=== PATIENT | female | born 2000 | race Caucasian/White ===

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

== ENCOUNTER 2019-06-07 00:22 | Inpatient (IN) | payer BC ==
[~2019-06-07 00:22] MED LIST changes: +Bupivacaine 0.25% 10 ML SDV ONE; -Lactated Ringers 1,000 ML IV SCH; -Lidocaine 1%/Sod Bicarbonate in NS 8.4% 1 ML Syringe IDERM PRN; -Sodium Chloride 0.9% 10 ML Syringe FLUSH PRN
[2019-06-07] MEDS ORDERED: Ondansetron 4 MG/2 ML SDV IVPUSH PRN ×2 (01:33→07:46)
[2019-06-07] MEDS ORDERED: Nalbuphine 10 MG/ML Syringe IVPUSH PRN (01:33)
[2019-06-07] MEDS ORDERED: Sodium Chloride 0.9% 10 ML Syringe FLUSH PRN (01:33)
[2019-06-07] MEDS ORDERED: Oxytocin/Lactated Ringers 10 UNIT/1,000 ML BAG IV SCH ×2 (01:45→11:00)
--- NOTE | 2019-06-07 01:47 | PCM.HP.2 ---
<Erick Jensen - Last Filed: 06/07/19 02:14> H&P History of Present Illness - General Date of Service: 06/07/19 Admit Problem/Dx: Admission Diagnosis/Problem Admission Diagnosis/Problem Source of Information: Patient History Limitations: Reports: No Limitations - History of Present Illness Initial Comments - Free Text/Narative: Ms. Faith Waller is a pleasant 18 yo F who is a with an ANT 2019 and estimated gestational age of 39 weeks and 4 days. Ms. Waller presents to L&D this morning around . She started having low back pain since 444 on 06/06/2019 and things have continued since then. She states she is having contraction like pain and these have progressively gotten more frequent and more strong. Because of this as well as the pain being in front from her contractions she decided to come in. She states the pain right now is between a 5-6/10. She states she was having contractions all day between 5-9 min apart but in the last 3 hours seem to be every 3-5 min. She admits the tub at home helped with her pain. Pt admits to transient nausea but denies vomiting. Pt normally sees Dr. Truong for care, pt denies any concerns regarding this from her or Dr. Truong. Last time she saw him was Friday, 2019. Pt reports being GBS (-), having no history of HTN or asthma. Pt not interested in an epidural at this point. Pt presents ~0030 on 06/07/2019 for an OB check. Hx of Labs: RPR: negative HIV: negative GBS: negative WBC: 8.0 RBC: 4.45 Hgb: 12.4 Hct: 38.3 Fe: 32 ug/dL TIBC: 413 ug/dL % saturation: 8% - Related Data Allergies/Adverse Reactions: Allergies Allergy/AdvReac Type Severity Reaction Status Date / Time No Known Allergies Allergy Verified 06/07/19 00:37 Home Medications: Home Meds Ferrous Sulfate [Iron] 325 mg PO 06/07/19 [History] Past Medical History HEENT History: Reports: Other (See Below) Other HEENT History: has contacts Cardiovascular History: Reports: None Respiratory History: Reports: None Gastrointestinal History: Reports: None Genitourinary History: Reports: None 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: Reports: Musculoskeletal History: Reports: None Neurological History: Reports: Other (See Below) (Chiari I malformation) Other Neuro History: chiari decompression 2015, 2018 Psychiatric History: Reports: None Endocrine/Metabolic History: Reports: None Hematologic History: Reports: None Immunologic History: Reports: None Oncologic (Cancer) History: Reports: None Dermatologic History: Reports: None - Past Surgical History Head Surgeries/Procedures: Reports: Other (See Below) (Chiari decompression x 2) HEENT Surgical History: Reports: Oral Surgery (wisdom teeth extraction) Social & Family History - Caffeine Use Caffeine Use: Reports: None - Living Situation & Occupation Living situation: Reports: , with Spouse Occupation: Unemployed H&P Review of Systems - Review of Systems: General: Reports: No Symptoms HEENT: Reports: No Symptoms, Glasses Pulmonary: Reports: No Symptoms Cardiovascular: Reports: No Symptoms Gastrointestinal: Reports: No Symptoms Genitourinary: Reports: No Symptoms Musculoskeletal: Reports: No Symptoms Skin: Reports: No Symptoms Psychiatric: Reports: No Symptoms Neurological: Reports: No Symptoms Hematologic/Lymphatic: Reports: No Symptoms Exam - Exam Exam: See Below - Vital Signs Vital Signs: Last Vital Signs Temp 97.9 F 06/07/19 00:37 Pulse 79 06/07/19 00:37 Resp 15 06/07/19 00:37 BP 111/73 06/07/19 00:37 Pulse Ox 96 06/07/19 00:37 Weight: 143 lb 4.8 oz - Exam General: Alert, Oriented HEENT: Conjunctiva Clear, Hearing Intact, Pupils Equal, Pupils Reactive Neck: Supple, Trachea Midline Lungs: Clear to Auscultation, Normal Respiratory Effort Cardiovascular: Regular Rate, Regular Rhythm, Normal S1, Normal S2 (Female) Exam: Other (Per exam via Dr. Lynn she is 90-100% effaced, 2cm dilated, soft, posterior, vertex and -1 station) Extremities: Normal Inspection, No Pedal Edema Peripheral Pulses: 2+: Radial (L), Radial (R), Posterior Tibial (L), Posterior Tibial (R) Skin: Warm, Dry, Intact Neuro Extensive - Mental Status: Alert, Oriented x3, Normal Mood/Affect, Normal Cognition Psychiatric: Alert, Normal Affect, Normal Mood - Patient Data Result Diagrams: 06/07/19 01:50 Sepsis Event Note - Focused Exam Vital Signs: Vital Signs Temp Pulse Resp BP Pulse Ox 06/07/19 00:37 97.9 F 79 15 111/73 96 Date Exam was Performed: 06/07/19 Time Exam was Performed: 02:14 Problem List Initiated/Reviewed/Updated: Yes Orders Last 24hrs: Active Orders 24 hr Category Date Time Status Patient Status [ADT] Routine ADT 06/07/19 01:34 Active Activity as Tolerated [RC] PFP Care 06/07/19 01:33 Active Communication Order [RC] ASDIRECTED Care 06/07/19 01:33 Active Heart Tones [RC] ASDIRECTED Care 06/07/19 01:34 Active Non Stress Test [RC] PER UNIT ROUTINE Care 06/07/19 00:37 Active Notify Provider [RC] PFP Care 06/07/19 01:33 Active Notify Provider [RC] PRN Care 06/07/19 01:33 Active Peripheral IV Care [RC] . DIRECTED Care 06/07/19 01:34 Active Vital Signs [RC] PER UNIT ROUTINE Care 06/07/19 00:37 Active Regular Diet [DIET] Diet 06/07/19 Breakfast Active BLOOD BANK HOLD SPECIMEN [BBK] Routine Lab 06/07/19 01:33 Ordered CBC WITH AUTO DIFF [HEME] Routine Lab 06/07/19 01:33 Ordered RAPID PLASMA REAGIN,RPR [CHEM] Routine Lab 06/07/19 01:33 Ordered Lactated Ringers [Ringers, Lactated] 1,000 ml Med 06/07/19 01:45 Active IV ASDIRECTED Nalbuphine [Nubain] Med 06/07/19 01:33 Active 10 mg IVPUSH Q2H PRN Ondansetron [Zofran] Med 06/07/19 01:33 Active 4 mg IVPUSH Q4H PRN Oxytocin/Lactated Ringers [Pitocin in LR 10 Units/1,000 Med 06/07/19 01:45 Active ML] 10 unit in 1,000 ml IV .CONTINUOUS Sodium Chloride 0.9% [Saline Flush] Med 06/07/19 01:33 Active 10 ml FLUSH ASDIRECTED PRN Electronic Heart Tones Ext w TOCO [WOMSER] Oth 06/07/19 01:33 Ordered Routine Electronic Heart Tones Internal [WOMSER] Per Unit Oth 06/07/19 01:33 Ordered Routine Peripheral IV Insertion Adult [OM.PC] Routine Oth 06/07/19 01:33 Ordered Resuscitation Status Routine Resus Stat 06/07/19 00:37 Ordered Medication Orders Lactated Ringer's (Ringers, Lactated) 1,000 mls @ 100 mls/hr IV ASDIRECTED BRANDON Oxytocin/Lactated Ringer's (Pitocin In Lr 10 Units/1,000 Ml) 10 unit in 1,000 mls @ 500 mls/hr IV .CONTINUOUS BRANDON Nalbuphine HCl (Nubain) 10 mg IVPUSH Q2H PRN PRN Reason: Pain Ondansetron HCl (Zofran) 4 mg IVPUSH Q4H PRN PRN Reason: Nausea/Vomiting Sodium Chloride (Saline Flush) 10 ml FLUSH ASDIRECTED PRN PRN Reason: Keep Vein Open Assessment/Plan Comment:: labs to be drawn monitor for labor and delivery - Mortality Measure Prognosis:: Good <Bethel Lynn - Last Filed: 06/07/19 02:25> H&P History of Present Illness - General Admit Problem/Dx: Admission Diagnosis/Problem Admission Diagnosis/Problem H&P Review of Systems - Review of Systems: Review Of Systems: See Below Exam - Vital Signs Vital Signs: Last Vital Signs Temp 97.9 F 06/07/19 00:37 Pulse 79 06/07/19 00:37 Resp 15 06/07/19 00:37 BP 111/73 06/07/19 00:37 Pulse Ox 96 06/07/19 00:37 - Patient Data Lab Results Last 24 hrs: Laboratory Results - last 24 hr 06/07/19 Range/Units 01:50 WBC 12.22 H (3.98-10.04) K/mm3 RBC 4.68 (3.98-5.22) M/mm3 Hgb 13.0 (11.2-15.7) gm/dl Hct 39.2 (34.1-44.9) % MCV 83.8 (79.4-94.8) fl MCH 27.8 (25.6-32.2) pg MCHC 33.2 (32.2-35.5) g/dl RDW Std Deviation 43.3 (36.4-46.3) fL Plt Count 311 (182-369) K/mm3 MPV 10.6 (9.4-12.3) fl Neut % (Auto) 80.1 H (34.0-71.1) % Lymph % (Auto) 11.8 L (19.3-51.7) % [place] % (Auto) 7.2 (4.7-12.5) % Eos % (Auto) 0 L (0.7-5.8) Baso % (Auto) 0.2 (0.1-1.2) % Neut # (Auto) 9.79 H (1.56-6.13) K/mm3 Lymph # (Auto) 1.44 (1.18-3.74) K/mm3 [place] # (Auto) 0.88 H (0.24-0.36) K/mm3 Eos # (Auto) 0.00 L (0.04-0.36) K/mm3 Baso # (Auto) 0.02 (0.01-0.08) K/mm3 Result Diagrams: 06/07/19 01:50 Sepsis Event Note - Focused Exam Vital Signs: Vital Signs Temp Pulse Resp BP Pulse Ox 06/07/19 00:37 97.9 F 79 15 111/73 96 Date Exam was Performed: 06/07/19 Time Exam was Performed: 02:24 - Problem List (1) 39 weeks gestation of SNOMED Code(s): 86431174 ICD Code: Z3A.39 - 39 WEEKS GESTATION OF Status: Acute Current Visit: Yes Problem List Initiated/Reviewed/Updated: No Orders Last 24hrs: Active Orders 24 hr Category Date Time Status Patient Status [ADT] Routine ADT 06/07/19 01:34 Active Activity as Tolerated [RC] PFP Care 06/07/19 01:33 Active Communication Order [RC] ASDIRECTED Care 06/07/19 01:33 Active Heart Tones [RC] ASDIRECTED Care 06/07/19 01:34 Active Non Stress Test [RC] PER UNIT ROUTINE Care 06/07/19 00:37 Active Notify Provider [RC] PFP Care 06/07/19 01:33 Active Notify Provider [RC] PRN Care 06/07/19 01:33 Active Peripheral IV Care [RC] . DIRECTED Care 06/07/19 01:34 Active Vital Signs [RC] PER UNIT ROUTINE Care 06/07/19 00:37 Active Regular Diet [DIET] Diet 06/07/19 Breakfast Active BLOOD BANK HOLD SPECIMEN [BBK] Routine Lab 06/07/19 01:33 Ordered RAPID PLASMA REAGIN,RPR [CHEM] Routine Lab 06/07/19 01:50 Received Lactated Ringers [Ringers, Lactated] 1,000 ml Med 06/07/19 01:45 Active IV ASDIRECTED Nalbuphine [Nubain] Med 06/07/19 01:33 Active 10 mg IVPUSH Q2H PRN Ondansetron [Zofran] Med 06/07/19 01:33 Active 4 mg IVPUSH Q4H PRN Oxytocin/Lactated Ringers [Pitocin in LR 10 Units/1,000 Med 06/07/19 01:45 Active ML] 10 unit in 1,000 ml IV .CONTINUOUS Sodium Chloride 0.9% [Saline Flush] Med 06/07/19 01:33 Active 10 ml FLUSH ASDIRECTED PRN Electronic Heart Tones Ext w TOCO [WOMSER] Oth 06/07/19 01:33 Ordered Routine Electronic Heart Tones Internal [WOMSER] Per Unit Oth 06/07/19 01:33 Ordered Routine Peripheral IV Insertion Adult [OM.PC] Routine Oth 06/07/19 01:33 Ordered Resuscitation Status Routine Resus Stat 06/07/19 00:37 Ordered Medication Orders Lactated Ringer's (Ringers, Lactated) 1,000 mls @ 100 mls/hr IV ASDIRECTED BRANDON Oxytocin/Lactated Ringer's (Pitocin In Lr 10 Units/1,000 Ml) 10 unit in 1,000 mls @ 500 mls/hr IV .CONTINUOUS BRANDON Nalbuphine HCl (Nubain) 10 mg IVPUSH Q2H PRN PRN Reason: Pain Ondansetron HCl (Zofran) 4 mg IVPUSH Q4H PRN PRN Reason: Nausea/Vomiting Sodium Chloride (Saline Flush) 10 ml FLUSH ASDIRECTED PRN PRN Reason: Keep Vein Open Assessment/Plan Comment:: Patient was seen and examined by me and discussed with the student.
[2019-06-07] MEDS ORDERED: fentaNYL 100 MCG/2 ML SDV EPIDUR PRN (07:46)
[2019-06-07] MEDS ORDERED: fentaNYL/Bupivacaine/NS 2 MCG-0.125% 250 ML EPIDUR PRN (07:46)
[2019-06-07] MEDS ORDERED: ePHEDrine 50 MG/ML SDV IVPUSH PRN (07:46)
--- NOTE | 2019-06-07 07:48 | PCM.PREANE ---
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 Since procedure patient denies any issues with headaches.) - Physical Assessment NPO Status Date: 06/07/19 NPO Status Time: 07:00 Vital Signs: Last Vital Signs Temp 36.6 C 06/07/19 00:37 Pulse 79 06/07/19 00:37 Resp 15 06/07/19 00:37 BP 111/73 06/07/19 00:37 Pulse Ox 96 06/07/19 00:37 Height: 1.63 m Weight: 65 kg ASA Class: 2 Mental Status: Alert & Oriented x3 Airway Class: Mallampati = 2 Dentition: Reports: Normal Dentition, Caries Thyro-Mental Finger Breadths: 3 Mouth Opening Finger Breadths: 3 ROM/Head Extension: Full Lungs: Clear to Auscultation, Normal Respiratory Effort Cardiovascular: Regular Rate, Regular Rhythm, No Murmurs - Lab Values: Laboratory Last Values WBC 12.22 K/mm3 (3.98-10.04) H 06/07/19 01:50 RBC 4.68 M/mm3 (3.98-5.22) 06/07/19 01:50 Hgb 13.0 gm/dl (11.2-15.7) 06/07/19 01:50 Hct 39.2 % (34.1-44.9) 06/07/19 01:50 MCV 83.8 fl (79.4-94.8) 06/07/19 01:50 MCH 27.8 pg (25.6-32.2) 06/07/19 01:50 MCHC 33.2 g/dl (32.2-35.5) 06/07/19 01:50 RDW Std Deviation 43.3 fL (36.4-46.3) 06/07/19 01:50 Plt Count 311 K/mm3 (182-369) 06/07/19 01:50 MPV 10.6 fl (9.4-12.3) 06/07/19 01:50 Neut % (Auto) 80.1 % (34.0-71.1) H 06/07/19 01:50 Lymph % (Auto) 11.8 % (19.3-51.7) L 06/07/19 01:50 [place] % (Auto) 7.2 % (4.7-12.5) 06/07/19 01:50 Eos % (Auto) 0 (0.7-5.8) L 06/07/19 01:50 Baso % (Auto) 0.2 % (0.1-1.2) 06/07/19 01:50 Neut # (Auto) 9.79 K/mm3 (1.56-6.13) H 06/07/19 01:50 Lymph # (Auto) 1.44 K/mm3 (1.18-3.74) 06/07/19 01:50 [place] # (Auto) 0.88 K/mm3 (0.24-0.36) H 06/07/19 01:50 Eos # (Auto) 0.00 K/mm3 (0.04-0.36) L 06/07/19 01:50 Baso # (Auto) 0.02 K/mm3 (0.01-0.08) 06/07/19 01:50 Above labs reviewed and noted and within acceptable ranges to proceed with epidural if desired. - Allergies Allergies/Adverse Reactions: Allergies Allergy/AdvReac Type Severity Reaction Status Date / Time No Known Allergies Allergy Verified 06/07/19 00:37 - Anesthesia Plan Pre-Op Medication Ordered: None - Acknowledgements Anesthesia Type Planned: General Anesthesia, Epidural Pt an Appropriate Candidate for the Planned Anesthesia: Yes Alternatives and Risks of Anesthesia Discussed w Pt/Guardian: Yes Pt/Guardian Understands and Agrees with Anesthesia Plan: Yes PreAnesthesia Questionnaire HEENT History: Reports: Other (See Below) Other HEENT History: has contacts Cardiovascular History: Reports: None Respiratory History: Reports: None Gastrointestinal History: Reports: None Genitourinary History: Reports: None [employer] History: Reports: Musculoskeletal History: Reports: None Neurological History: Reports: Other (See Below) (Chiari I malformation) Other Neuro History: chiari decompression 2015, 2018 Psychiatric History: Reports: None Endocrine/Metabolic History: Reports: None Hematologic History: Reports: None Immunologic History: Reports: None Oncologic (Cancer) History: Reports: None Dermatologic History: Reports: None - Past Surgical History Head Surgeries/Procedures: Reports: Other (See Below) (Chiari decompression x 2) HEENT Surgical History: Reports: Oral Surgery (wisdom teeth extraction) - SUBSTANCE USE Smoking Status *Q: Never Smoker Recreational Drug Use History: No - HOME MEDS Home Medications: Home Meds Ferrous Sulfate [Iron] 325 mg PO 06/07/19 [History] - CURRENT (IN HOUSE) MEDS Current Meds: Current Medications Lactated Ringer's (Ringers, Lactated) 1,000 mls @ 100 mls/hr IV ASDIRECTED BRANDON Oxytocin/Lactated Ringer's (Pitocin In Lr 10 Units/1,000 Ml) 10 unit in 1,000 mls @ 500 mls/hr IV .CONTINUOUS BRANDON Nalbuphine HCl (Nubain) 10 mg IVPUSH Q2H PRN PRN Reason: Pain Ondansetron HCl (Zofran) 4 mg IVPUSH Q4H PRN PRN Reason: Nausea/Vomiting Sodium Chloride (Saline Flush) 10 ml FLUSH ASDIRECTED PRN PRN Reason: Keep Vein Open
[2019-06-07] MEDS ORDERED: Oxytocin/Lactated Ringers 20 UNIT/1,000 ML BAG IV SCH (10:30)
[2019-06-07] MEDS: Lactated Ringers 1,000 ML IV SCH ×4 (10:47→16:16)
--- NOTE | 2019-06-07 20:56 | PCM.SN ---
- Free Text/Narrative Note: Delivery note: Faith is a 18-year-old 2 now para 1011 white female who is admitted on the early a.m. of 06/07/2019 at 39-4/7 weeks gestational age in spontaneous labor. She made slow progression of labor. She had underwent rupture membranes with resultant clear amniotic fluid at midday on 06/07/2019. This intensified her labor. Epidural was placed for laboring analgesia. She progressed to complete cervical dilation by approximately 1900 hrs. She began pushing and at 2026 hrs. on 06/07/2019 she delivered a viable, cunningham, female weighing 3400 g (7 lbs. 8 oz.) in a direct occiput anterior position over relatively intact perineum with the exception of a a small grade 1 tear. the baby was placed on mom's abdomen. Cord was allowed to pulsate for 1-2 minutes and then was clamped 2 and cut by the baby's father Brad. The Pitocin was increased to 500 mL an hour to facilitate an increase in uterine tone and decreased likelihood of bleeding. Cord blood was obtained. The placenta delivered in a [place] presentation. It appeared intact and complete and was discarded per patient desire. Umbilical cord had 3 vessels. A [id number] suture was placed in the superficial vaginal/perineal laceration which reapproximated at adequately. Epidural was used for anesthesia. He tolerated this well. Estimated blood loss was approximately 100 mL. She plans to breast-feed. Patient : Good.
[2019-06-07] MEDS ORDERED: Docusate Sodium 100 MG Cap PO PRN (21:38)
[2019-06-07] MEDS ORDERED: Witch Hazel Medicated Pads 40/Jar TOP PRN (21:38)
[2019-06-07] MEDS ORDERED: Ibuprofen 600 MG Tab PO PRN (21:38)
[2019-06-07] MEDS ORDERED: Acetaminophen 325 MG Tab PO PRN (21:38)
[2019-06-07] MEDS ORDERED: Benzocaine/Menthol 20%-0.5% Spray 56 GM Canister TOP PRN (21:38)
--- NOTE | 2019-06-08 08:03 | PCM.SN ---
- Free Text/Narrative Note: note: Patient is doing well in the period. Minimal lochia, voiding well, ambulated without problems. Nursing without concerns. Patient is afebrile, vital signs are stable Abdomen is flat, soft, uterus is below the umbilicus and is firm and nontender. Legs are nontender. Assessment: recovery going well. Plan: Routine care. Patient be discharged home within the next 24-48 hours.
[2019-06-09] MEDS: Prenatal Multivitamin with Calcium/Folic Acid/Iron Tab PO SCH ×2 (07:54→11:30)
--- NOTE | 2019-06-09 08:04 | PCM48HPAN ---
Post Anesthesia Note - EVALUATION WITHIN 48HRS OF ANESTHETIC Vital Signs in Normal Range: Yes Patient Participated in Evaluation: Yes Respiratory Function Stable: Yes Airway Patent: Yes Cardiovascular Function Stable: Yes Hydration Status Stable: Yes Pain Control Satisfactory: Yes Nausea and Vomiting Control Satisfactory: Yes Mental Status Recovered: Yes Vital Signs: Last Vital Signs Temp 97.7 F 06/09/19 04:20 Pulse 80 06/09/19 04:20 Resp 14 06/09/19 04:20 BP 108/65 06/09/19 04:20 Pulse Ox 98 06/09/19 04:20
--- NOTE | 2019-06-09 09:07 | PCM.DCSUM1 ---
Discharge Summary - Hospital Course Free Text/Narrative:: Faith is a 18-year-old 2 now para 1011 white female who is admitted on the early a.m. of 06/07/2019 at 39-4/7 weeks gestational age in spontaneous labor. She made slow progression of labor. She had underwent rupture membranes with resultant clear amniotic fluid at midday on 06/07/2019. This intensified her labor. Epidural was placed for laboring analgesia. She progressed to complete cervical dilation by approximately 1900 hrs. She began pushing and at 2026 hrs. on 06/07/2019 she delivered a viable, cunningham, female weighing 3400 g (7 lbs. 8 oz.) in a direct occiput anterior position over relatively intact perineum with the exception of a a small grade 1 tear. the baby was placed on mom's abdomen. Cord was allowed to pulsate for 1-2 minutes and then was clamped 2 and cut by the baby's father Brad. The Pitocin was increased to 500 mL an hour to facilitate an increase in uterine tone and decreased likelihood of bleeding. Cord blood was obtained. The placenta delivered in a [place] presentation. It appeared intact and complete and was discarded per patient desire. Umbilical cord had 3 vessels. A [id number] suture was placed in the superficial vaginal/perineal laceration which reapproximated at adequately. Epidural was used for anesthesia. He tolerated this well. Estimated blood loss was approximately 100 mL. She plans to breast-feed. patient has done wonderfully. She has minimal lochia, was voiding well, is nursing without problems. She is ambulating without concerns. She is ready for discharge. Diagnosis: Stroke: No - Discharge Data Discharge Date: 06/09/19 Discharge Disposition: Home, Self-Care 01 Condition: Good - Referral to Home Health Primary Care Physician: Bethel Lynn MD - Patient Instructions Diet: Regular Diet as Tolerated (Nursing diet with increase in calories and calcium is recommended) Activity: As Tolerated (No intercourse or tampons until bleeding resolves.) Driving: May Drive Today Showering/Bathing: May Shower (May take a bath) Notify Provider of: Fever, Increased Pain, Swelling and Redness, Nausea and/or Vomiting - Discharge Plan Home Medications: Home Meds Ferrous Sulfate [Iron] 325 mg PO 06/07/19 [History] Acetaminophen [Tylenol] 650 mg PO Q4H PRN tablet 06/09/19 [Rx] Ibuprofen [Motrin] 600 mg PO Q4H PRN tablet 06/09/19 [Rx] Vit with Ca/FA/Iron [ Plus Iron] 1 each PO DAILY tablet [Rx] Referrals: Riley Truong MD [Physician] - - Discharge Summary/Plan Comment DC Time >30 min.: No Discharge Summary/Plan Comment: Discharge instructions: 1. Discharge home 2. Diet, activity and follow-up discussed with patient. Recommend nursing diet with increased calories and calcium. 3. Precautions given concern increased pain, bleeding, temperature, signs/ symptoms of DVT/PE. 4. Medications per home medication was printed, discussed with and given to the patient. 5. Return to clinic-Dr. Truong[facility] in 2 weeks. Diagnosis: Term -delivered Condition: Good - Patient Data Vitals - Most Recent: Last Vital Signs Temp 36.5 C 06/09/19 04:20 Pulse 80 06/09/19 04:20 Resp 14 06/09/19 04:20 BP 108/65 06/09/19 04:20 Pulse Ox 98 06/09/19 04:20 Weight - Most Recent: 65 kg Med Orders - Current: Current Medications Acetaminophen (Tylenol) 650 mg PO Q4H PRN PRN Reason: mild pain or fever Benzocaine/Menthol (Dermoplast Pain Relief [place]) 0 gm TOP ASDIRECTED PRN PRN Reason: Perineal Comfort Measure Last Admin: 06/07/19 22:39 Dose: 1 canister Docusate Sodium (Colace) 100 mg PO BID PRN PRN Reason: Constipation Ibuprofen (Motrin) 600 mg PO Q4H PRN PRN Reason: Mild pain or fever Prenat Multivit/[place]/Iron/Folic Ac ( Plus Iron) 1 each PO DAILY BRANDON Last Admin: 06/09/19 07:54 Dose: Not Given [address] ([place]) 1 pad TOP ASDIRECTED PRN PRN Reason: Pain Last Admin: 06/07/19 22:39 Dose: 1 canister Discontinued Medications Bupivacaine HCl (Sensorcaine-Mpf 0.25%) 10 ml .ROUTE .STK-MED ONE Stop: 06/07/19 00:01 Ephedrine Sulfate (Ephedrine Sulfate) 5 mg IVPUSH ASDIRECTED PRN PRN Reason: Hypotension Fentanyl (Sublimaze) 100 mcg EPIDUR Q3H PRN PRN Reason: Pain Last Admin: 06/07/19 15:13 Dose: 100 mcg Fentanyl/Bupivacaine HCl (Fentanyl/Bupivacaine/Ns 2 Mcg-0.125% 250 Ml) 250 ml EPIDUR CONTINUOUS PRN PRN Reason: Pain Last Admin: 06/07/19 15:14 Dose: 250 ml Lactated Ringer's (Ringers, Lactated) 1,000 mls @ 100 mls/hr IV ASDIRECTED BRANDON Last Admin: 06/07/19 16:16 Dose: 100 mls/hr Oxytocin/Lactated Ringer's (Pitocin In Lr 10 Units/1,000 Ml) 10 unit in 1,000 mls @ 500 mls/hr IV .CONTINUOUS BRANDON Oxytocin/Lactated Ringer's (Pitocin In Lr 20 Units/1,000 Ml) 20 unit in 1,000 mls @ 6 mls/hr IV TITRATE BRANDON; Protocol Oxytocin/Lactated Ringer's (Pitocin In Lr 10 Units/1,000 Ml) 10 unit in 1,000 mls @ 12 mls/hr IV TITRATE BRANDON; Protocol Last Titration: 06/07/19 17:34 Dose: 10 munits/min, 60 mls/hr Nalbuphine HCl (Nubain) 10 mg IVPUSH Q2H PRN PRN Reason: Pain Ondansetron HCl (Zofran) 4 mg IVPUSH Q4H PRN PRN Reason: Nausea/Vomiting Ondansetron HCl (Zofran) 4 mg IVPUSH ONETIME PRN PRN Reason: Nausea/Vomiting Sodium Chloride (Saline Flush) 10 ml FLUSH ASDIRECTED PRN PRN Reason: Keep Vein Open
== END 2019-06-09 11:37 | disposition home or self-care (01) | DRG 560 ==
LOC: JD.OBCHECK 00:22 → JD.OB 01:56 → OBSVTOIN 20:27 → JD.OB 20:28
PROVIDERS: ADMIT Obstetrics & Gynecology; ATTEND Obstetrics & Gynecology
PROC: 10E0XZZ Delivery of Products of Conception, External Approach (ICD-10-PCS; principal; 2019-06-07)
PROC: 3E0R3BZ Introduction of Anesthetic Agent into Spinal Canal, Percutaneous Approach (ICD-10-PCS; 2019-06-07)
PROC: 0HQ9XZZ Repair Perineum Skin, External Approach (ICD-10-PCS; 2019-06-07)
PROC: 10907ZC Drainage of Amniotic Fluid, Therapeutic from Products of Conception, Via Natural or Artificial Opening (ICD-10-PCS; 2019-06-07)
DX: O70.0 First degree perineal laceration during delivery (principal); Z3A.39 39 weeks gestation of pregnancy; Z37.0 Single live birth; Z79.899 Other long term (current) drug therapy
CPT/HCPCS: 01967; 36415; 51702; 59025; 59409; 85025; 86592; A9270-GY; J2590; J3010; J3490; J7120

== ENCOUNTER 2020-12-21 04:55 | Inpatient (IN) | payer BC ==
[2020-12-21] MEDS ORDERED: Lidocaine 1% 50 ML MDV INJECT ONE (05:29)
[2020-12-21] MEDS ORDERED: Sodium Chloride 0.9% 10 ML Syringe FLUSH PRN (05:29)
[2020-12-21] MEDS ORDERED: Nalbuphine 10 MG/1 ML Vial IVPUSH PRN (05:29)
[2020-12-21] MEDS ORDERED: Lactated Ringers 1,000 ML IV SCH (05:30)
[2020-12-21] MEDS ORDERED: Oxytocin/Lactated Ringers 10 UNIT/1,000 ML BAG IV SCH (05:30)
[2020-12-21] MEDS ORDERED: Oxytocin/Lactated Ringers 10 UNIT/1,000 ML BAG IV ONE (05:49)
[2020-12-21] MEDS ORDERED: Lidocaine 1% 50 ML MDV ONE (05:50)
--- NOTE | 2020-12-21 06:08 | PCM.LDHP ---
L&D History of Present Illness - General Date of Service: 12/21/20 Admit Problem/Dx: Patient Status Order with Admit Dx/Problem 12/21/20 05:30 Patient Status [ADT] Routine Admission Diagnosis/Problem Admission Diagnosis/Problem 12/21/20 05:59 Ko is a 20-year-old 3 para 1-0-1-1 female admitted on the a.m. of 12/21/2020 at 40-4/7 weeks gestational age with an ANT of 12/17/2020 in active l abor with advanced cervical dilation of 8 cm. Source of Information: Patient History Limitations: Reports: No Limitations - History of Present Illness Introduction:: Ko is a 20-year-old 3 para 1-0-1-1 female admitted on the a.m. of 12/21/2020 at 40-4/7 weeks gestational age with an ANT of 12/17/2020 in active labor with advanced cervical dilation of 8 cm. She reports contractions beginning during the night. They have progressively increased to frequency of 3 cm. She has intact membranes with no leakage or bleeding noted. Baby has been active. On evaluation in labor she is found to be 8 cm, 100% effaced, bulging bag of jaquez. She wishes to proceed naturally with her labor. GENERAL MANAGER FOOD history: 3 para 1-0-1-1. Menarche at age 12. Positive hCG on 04/12/2020. Cycles are somewhat irregular. They do occur on a less than monthly basis. Last menstrual period was unknown. Her is dated by an early ultrasound done on 06/08/2020 at 12 weeks and 4 days. ATN is set at 12/17/2020. Previous obstetric history includes the followin. Miscarriage 06/23/2018 at 10-5/7 weeks gestational age. Passed naturally. 2. Female born 06/07/2020 at 39-4/7 weeks - 7 pounds 8 ouncesNSVDepidural used in laborC HI Dickinsonfirst-degree tearchild's name is Raisa Mracum.. course: Patient's first visit was on 06/08/2020. is dated at 12-4/7 weeks at that time. She is seen on a very regular basis throughout the . Weight increases from 115.4-127.2. Blood pressures and vital signs remained stable throughout the course. Fundal height growth was appropriate. Patient had 2 ultrasounds performed: First 1 done on 06/08/2020 for dating. Second was done at 20-4/7 weeks which correlated well with her first ultrasound. Beard viable intrauterine with no complications noted. Patient desires natural labor. She is group B strep negative. Patient has had a history of a Chiari decompression surgery x2. [facility] from [facility] indicate no concerns with epidural analgesia or the process of labor. She declined flu vaccination. She declined GC and Chlamydia evaluation. She declined genetic testing. She declined Tdap vaccination. She plans to breast-feed. [place] depression screen score on 08/01/2020 was 0/30. Laboratory testing : Blood is AB+ with a negative antibody screen. Hemoglobin is 13.4 g/dL at the time of her first visit. Platelets at that time were 293,000. She is rubella immune. RPR is nonreactive. Hepatitis B surface antigen and HIV assays were negative. She declined gonorrhea and chlamydia. Her hepatitis C virus antibody was less than 0.1. TSH done 08/30/2020 was normal at 1.841. Second trimester labs showed a hemoglobin of 12.2 g/dL and platelets at 296,000. Her 1 hour GTT was 87. RPR on 09/19/2020 was nonreactive. Group B strep screen was negative. Allergies: None Medications: vitamins 1 daily Past medical history: 1. Miscarriage x1 2. x1 3. [place] teeth extraction Past surgical history: 1. Chiari decompression surgeries x2 as a child. Family history: Mother and father are alive and well. She has 5 sisters and 2 brothers all alive and well. Maternal grandmother is alive and well. Maternal grandfather has high cholesterol and diabetes. Paternal grandmother is alive with history of stroke and type 2 diabetes. Paternal grandfather is alive and well. No , anesthesia, bleeding or blood clotting problems are noted. Paternal grandfather recently diagnosed with cancer but type is unknown felt to possibly be stomach cancer. Social history: Patient is . She is a [id number] mom. She lives in [place], [place]. She is a high school graduate. She does not use any significance alcohol drugs or tobacco. Her is Amol. Review of systems: In general patient has no complaints. Baby is active. She is having contractions but is doing very well with them. Skin: Negative Lungs: No infectious symptoms or shortness of breath Cardiovascular: No chest pain or exercise intolerance Breasts: No lumps, changes in size, pain, dimpling, discharge or axillary or supraclavicular concerns. changes. Patient plans to breast-feed. GI: Negative : Body habitus changes associated with . Musculoskeletal: Negative Neurological: Negative Physical exam: In general the patient is well-developed, well-nourished, pleasant female of stated age in no acute distress. On last evaluation clinic on 12/13/2020 blood pressure is 98/65. Weight was 127.2 with previous weight prior to at 115.4. Height is 5 feet 4 inches. Prepregnancy BMI was 19.2. Skin is warm dry without lesions. HEENT, neck and back within normal limits. Lungs are clear with good breath sounds in all lung lopez. Cardiovascular exam shows regular and rhythm without murmurs. Breast exam done at first visit was unremarkable. It is not repeated at this time. Patient plans to breast-feed. Abdomen is gravid with last fundal height clinic on 12/13/2020 at 38 cm. Baby in vertex presentation Genital per nurse evaluation 8 cm, high percent effaced, bulging bag jaquez, cephalic presentation. Extremities and neurological exam are grossly within normal limits. - Related Data Allergies/Adverse Reactions: Allergies Allergy/AdvReac Type Severity Reaction Status Date / Time No Known Allergies Allergy Verified 12/21/20 06:01 Home Medications: Home Meds Vit with Ca/FA/Iron [ Plus Iron] 1 each PO DAILY tablet 06/09/19 [Rx] Past Medical History HEENT History: Reports: Other (See Below) Other HEENT History: has contacts Cardiovascular History: Reports: None Respiratory History: Reports: None Gastrointestinal History: Reports: None Genitourinary History: Reports: None GENERAL MANAGER FOOD History: Reports: Musculoskeletal History: Reports: None Neurological History: Reports: Other (See Below) Other Neuro History: chiari decompression 2014, 2017 Psychiatric History: Reports: None Endocrine/Metabolic History: Reports: None Hematologic History: Reports: None Immunologic History: Reports: None Oncologic (Cancer) History: Reports: None Dermatologic History: Reports: None - Past Surgical History Head Surgeries/Procedures: Reports: Other (See Below) HEENT Surgical History: Reports: Oral Surgery Other HEENT Surgeries/Procedures: wisdom tooth extraction Cardiovascular Surgical History: Reports: None Respiratory Surgical History: Reports: None GI Surgical History: Reports: None Female Surgical History: Reports: None Endocrine Surgical History: Reports: None Neurological Surgical History: Reports: Other (See Below) Other Neurological Surgeries/Procedures: skull/brain for chiari decompression Musculoskeletal Surgical History: Reports: None Oncologic Surgical History: Reports: None Dermatological Surgical History: Reports: None Social & Family History - Tobacco Use Tobacco Use Status *Q: Never Tobacco User Second Hand Smoke Exposure: No - Caffeine Use Caffeine Use: Reports: None - Recreational Drug Use Recreational Drug Use: No - Living Situation & Occupation Living situation: Reports: , with Spouse Occupation: Unemployed H&P Review of Systems - Review of Systems: Review Of Systems: See Below L&D Exam - Exam Exam: See Below - Vital Signs Weight: 58.088 kg Problem List Initiated/Reviewed/Updated: Yes Orders Last 24hrs: Active Orders 24 hr Category Date Time Status Patient Status [ADT] Routine ADT 12/21/20 05:30 Active Activity as Tolerated [RC] PFP Care 12/21/20 05:30 Active Communication Order [RC] ASDIRECTED Care 12/21/20 05:30 Active Heart Tones [RC] ASDIRECTED Care 12/21/20 05:30 Active Notify Provider [RC] PFP Care 12/21/20 05:30 Active Notify Provider [RC] PRN Care 12/21/20 05:30 Active Peripheral IV Care [RC] . DIRECTED Care 12/21/20 05:30 Active Vital Signs [RC] PER UNIT ROUTINE Care 12/21/20 05:30 Active CBC WITH AUTO DIFF [HEME] Stat Lab 12/21/20 05:29 Ordered CORONAVIRUS COVID-19 RYAN [MOLEC] Stat Lab 12/21/20 05:30 Received HEPATITIS C ANTIBODY [CHEM] Stat Lab 12/21/20 05:29 Ordered RAPID PLASMA REAGIN,RPR [CHEM] Routine Lab 12/21/20 05:30 Ordered TYPE AND SCREEN [BBK] Stat Lab 12/21/20 05:29 Ordered Lactated Ringers [Ringers, Lactated] 1,000 ml Med 12/21/20 05:30 Active IV ASDIRECTED Nalbuphine [Nubain] Med 12/21/20 05:29 Active 10 mg IVPUSH Q2H PRN Oxytocin/Lactated Ringers [Pitocin in LR 10 Units/1,000 Med 12/21/20 05:30 Active ML] 10 unit in 1,000 ml IV .CONTINUOUS Sodium Chloride 0.9% [Saline Flush] Med 12/21/20 05:29 Active 10 ml FLUSH ASDIRECTED PRN Electronic Heart Tones Ext w TOCO [WOMSER] Ot 12/21/20 05:30 Ordered Routine Electronic Heart Tones Internal [WOMSER] Per Unit Ot 12/21/20 05:30 Ordered Routine Peripheral IV Insertion Adult [OM.PC] Routine Ot 12/21/20 05:30 Ordered Resuscitation Status Routine Resus Stat 12/21/20 05:29 Ordered Medication Orders Oxytocin/Lactated Ringer's (Pitocin In Lr 10 Units/1,000 Ml) 10 unit in 1,000 mls @ 500 mls/hr IV .CONTINUOUS BRANDON Lactated Ringer's (Ringers, Lactated) 1,000 mls @ 100 mls/hr IV ASDIRECTED BRANDON Nalbuphine HCl (Nalbuphine 10 Mg/1 Ml Vial) 10 mg IVPUSH Q2H PRN PRN Reason: Pain Sodium Chloride (Sodium Chloride 0.9% 10 Ml Syringe) 10 ml FLUSH ASDIRECTED PRN PRN Reason: Keep Vein Open Assessment/Plan Comment:: 1. Ko is a 20-year-old 3 para 1-0-1-1 female admitted on the a.m. of 12/21/2020 at 40-4/7 weeks gestational age with an ANT of 12/17/2020 in active labor with advanced cervical dilation of 8 cm. 2. Group B strep negative 3. Patient plans to nurse 4. Patient desires natural labor 5. Patient has declined, during her course, Tdap, GC and Chlamydia evaluation flu immunization, genetic testing. 6. Risk factors for the : Minimal Plan: 1. Anticipate 2. Support breast-feeding decision 3. IV access 4. Routine admission labs including CovidRPR per protocol.
--- NOTE | 2020-12-21 07:12 | PCM.SN.2 ---
- Free Text/Narrative Note: Delivery note: Stage I: Ko is a 20-year-old 3 para 1-0-1-1 female admitted on the a.m. of 12/21/2020 at 40-4/7 weeks gestational age with an ANT of 12/17/2020 in active labor with advanced cervical dilation of 8 cm. She quickly went on to complete cervical dilation by approximately 0635 hrs. on 12/12/2020. Artificial rupture membranes resulting in clear amniotic fluid. Patient had a natural labor with no analgesia. heart tones reassuring. Contractions every [address]. Stage II: The patient delivered a viable, cunningham, male infant named Golden Carmichael in a direct occiput anterior position over an intact perineum at 0648 hrs. on 12/21/2020. Baby is placed on mom's abdomen. Nose and mouth were bulb suctioned and the baby was dried with warm blanket. The umbilical cord was allowed to pulsate x3 minutes then was clamped x2 and cut by the baby's father Amol. Cord blood was obtained. The umbilical cord had 3 vessels present. No lacerations were noted and no suturing was required. The baby weighed 4050 grams (8#, 14.9 oz), had a length of 21.5 inches and had Apgars of 8 and 9. Pitocin was initiated right after delivery with a solution of 10 units of Pitocin per liter of fluid at 500 cc an hour rate. This to facilitate increase in uterine tone and decrease likelihood of bleeding. Uterine massage was undertaken as patient's uterus was somewhat boggy. With this good hemostasis was obtained. Stage III: Placenta delivered in a [place] presentation at 0653 hrs., appeared intact and complete and was discarded per patient desire. Estimated blood loss was approximately 200 cc. Patient plans to breast-feed. Condition: Good.
[2020-12-21] MEDS ORDERED: Witch Hazel Medicated Pads 40/Jar TOP PRN (07:53)
[2020-12-21] MEDS ORDERED: Benzocaine/Menthol 20%-0.5% Spray 56 GM Canister TOP PRN (07:53)
[2020-12-21] MEDS ORDERED: Acetaminophen 325 MG Tab PO PRN (07:53)
[2020-12-21] MEDS ORDERED: Docusate Sodium 100 MG Cap PO PRN (07:53)
[2020-12-21] MEDS ORDERED: Ibuprofen 600 MG Tab PO PRN (07:53)
[2020-12-21] MEDS ORDERED: Prenatal Multivitamin with Calcium/Folic Acid/Iron Tab PO SCH (09:00)
--- NOTE | 2020-12-22 09:19 | PCM.DCSUM1 ---
Discharge Summary - Hospital Course Diagnosis: Stroke: No - Discharge Data Discharge Date: 12/22/20 Discharge Disposition: Home, Self-Care 01 Condition: Good - Referral to Home Health Primary Care Physician: Riley Truong MD - Patient Summary/Data Hospital Course: Ko is a 20-year-old 3 para 1-0-1-1 female admitted on the a.m. of at 40-4/7 weeks gestational age with an ANT of 12/17/2020 in active labor with advanced cervical dilation of 8 cm. She quickly went on to complete cervical dilation by approximately 0635 hrs. on 12/12/2020. Artificial rupture membranes resulting in clear amniotic fluid. Patient had a natural labor with no analgesia. heart tones reassuring. Contractions every [address]. Stage II: The patient delivered a viable, cunningham, male infant named Golden Carmichael in a direct occiput anterior position over an intact perineum at 0648 hrs. on 12/21/2020. Baby is placed on mom's abdomen. Nose and mouth were bulb suctioned and the baby was dried with warm blanket. The umbilical cord was allowed to pulsate x3 minutes then was clamped x2 and cut by the baby's father Amol. Cord blood was obtained. The umbilical cord had 3 vessels present. No lacerations were noted and no suturing was required. The baby weighed, had a length of and had Apgars of 8 and 9. Pitocin was initiated right after delivery with a solution of 10 units of Pitocin per liter of fluid at 500 cc an hour rate. This to facilitate increase in uterine tone and decrease likelihood of bleeding. Uterine massage was undertaken as patient's uterus was somewhat boggy. With this good hemostasis was obtained. Stage III: Placenta delivered in a [place] presentation at 0653 hrs., appeared intact and complete and was discarded per patient desire. Estimated blood loss was approximately 200 cc. Patient plans to breast-feed. Condition: Good. Uncomplicated course. Expressed desire for discharge on PPD1. No issues. Minimal bleeding. - Patient Instructions Diet: Usual Diet as Tolerated Activity: No Strenuous Activities Activity, Other: pelvic rest Driving: May Drive Today Showering/Bathing: May Shower Notify Provider of: Fever, Increased Pain, Swelling and Redness, Drainage, Nausea and/or Vomiting - Discharge Plan *PRESCRIPTION DRUG MONITORING PROGRAM REVIEWED*: No *COPY OF PRESCRIPTION DRUG MONITORING REPORT IN PATIENT ASHLEY: No Home Medications: Home Meds Vit with Ca/FA/Iron [ Plus Iron] 1 each PO DAILY tablet 06/09/19 [Rx] Referrals: Riley Truong MD [Primary Care Provider] - (2 weeks) - Discharge Summary/Plan Comment DC Time >30 min.: No - Patient Data Vitals - Most Recent: Last Vital Signs Temp 36.9 C 12/22/20 04:24 Pulse 60 12/22/20 04:24 Resp 14 12/22/20 04:24 BP 104/67 12/22/20 04:24 Pulse Ox 97 12/22/20 04:24 Weight - Most Recent: 58.088 kg Lab Results - Last 24 hrs: Laboratory Results - last 24 hr 12/21/20 12/21/20 Range/Units 05:49 05:49 RPR Non-reactive (NONREACTIVE) Hepatitis C Antibody <0.1 (0.0-0.9) s/co ratio Med Orders - Current: Current Medications Acetaminophen (Acetaminophen 325 Mg Tab) 650 mg PO Q4H PRN PRN Reason: mild pain or fever Benzocaine/Menthol (Benzocaine/Menthol 20%-0.5% [place] 56 Gm Canister) 0 gm TOP ASDIRECTED PRN PRN Reason: Perineal Comfort Measure Last Admin: 12/21/20 09:19 Dose: 1 applic Documented by: Docusate Sodium (Docusate Sodium 100 Mg Cap) 100 mg PO BID PRN PRN Reason: Constipation Ibuprofen (Ibuprofen 600 Mg Tab) 600 mg PO Q4H PRN PRN Reason: Mild pain or fever Prenat Multivit/Stock Associate/Iron/Folic Ac ( Multivitamin With Calcium/Folic Acid/Iron Tab) 1 each PO DAILY BRANDON Last Admin: 12/21/20 09:20 Dose: 1 each Documented by: Karthik Way (Karthik Way Medicated Pads 40/Jar) 1 pad TOP ASDIRECTED PRN PRN Reason: Perineal Comfort Measure Last Admin: 12/21/20 09:19 Dose: 1 applic Documented by: Discontinued Medications Oxytocin/Lactated Ringer's (Pitocin In Lr 10 Units/1,000 Ml) 10 unit in 1,000 mls @ 500 mls/hr IV .CONTINUOUS BRANDON Lactated Ringer's (Ringers, Lactated) 1,000 mls @ 100 mls/hr IV ASDIRECTED BRANDON Oxytocin/Lactated Ringer's (Pitocin In Lr 10 Units/1,000 Ml) Confirm Administered Dose 10 unit in 1,000 mls @ as directed IV .STK-MED ONE Stop: 12/21/20 05:50 Lidocaine HCl (Lidocaine 1% 50 Ml Mdv) 50 ml INJECT ONETIME ONE Stop: 12/21/20 05:30 Lidocaine HCl (Lidocaine 1% 50 Ml Mdv) Confirm Administered Dose 50 ml .ROUTE .STK-MED ONE Stop: 12/21/20 05:51 Last Admin: 12/21/20 06:02 Dose: Not Given Documented by: Nalbuphine HCl (Nalbuphine 10 Mg/1 Ml Vial) 10 mg IVPUSH Q2H PRN PRN Reason: Pain Sodium Chloride (Sodium Chloride 0.9% 10 Ml Syringe) 10 ml FLUSH ASDIRECTED PRN PRN Reason: Keep Vein Open
== END 2020-12-22 12:00 | disposition home or self-care (01) | DRG 560 ==
LOC: JD.OBCHECK 04:55 → JD.OB 04:56 → JD.OBCHECK 05:29 → JD.OB 05:30 → OBSVTOIN 06:48 → JD.OB 06:49
PROVIDERS: ADMIT Obstetrics & Gynecology; ATTEND Obstetrics & Gynecology
PROC: 10E0XZZ Delivery of Products of Conception, External Approach (ICD-10-PCS; principal; 2020-12-21)
PROC: 10907ZC Drainage of Amniotic Fluid, Therapeutic from Products of Conception, Via Natural or Artificial Opening (ICD-10-PCS; 2020-12-21)
DX: O48.0 Post-term pregnancy (principal); Z37.0 Single live birth; Z20.822 Contact with and (suspected) exposure to COVID-19; Z3A.40 40 weeks gestation of pregnancy
CPT/HCPCS: 36415; 59025; 59409; 85025; 86592; 86803; 86850; 86900; 86901; A9270-GY; U0002

== ENCOUNTER 2022-06-09 23:59 | Inpatient (IN) | payer BC ==
[2022-06-10] MEDS ORDERED: Citric Acid/Sodium Citrate Solution 30 ML Cup PO ONE (00:17)
[2022-06-10] MEDS ORDERED: ceFAZolin 2 GM in Sodium Chloride 0.9% 50 ML IV ONE (00:17)
[2022-06-10] MEDS ORDERED: Sodium Chloride 0.9% 10 ML Syringe FLUSH PRN (00:17)
[2022-06-10] MEDS ORDERED: Metoclopramide 10 MG/2 ML SDV IVPUSH ONE (00:17)
[2022-06-10] MEDS ORDERED: Metoclopramide 10 MG/2 ML SDV ONE (00:24)
[2022-06-10] MEDS ORDERED: Citric Acid/Sodium Citrate Solution 30 ML Cup ONE (00:24)
[2022-06-10] MEDS ORDERED: Lactated Ringers 1,000 ML IV SCH (00:30)
[2022-06-10] MEDS ORDERED: Oxytocin/Lactated Ringers 10 UNIT/1,000 ML BAG IV SCH (00:30)
[2022-06-10] MEDS ORDERED: Bupivacaine 0.5% 30 ML SDV ONE ×2 (00:45→07:02)
[2022-06-10] MEDS ORDERED: Morphine PF 10 MG/10 ML SDV ONE (00:47)
[2022-06-10] MEDS ORDERED: Oxytocin 10 Units/1 ML SDV ONE ×2 (00:47→01:37)
[2022-06-10] MEDS ORDERED: Ondansetron 4 MG/2 ML SDV ONE (00:47)
[2022-06-10] MEDS ORDERED: Phenylephrine HCl In 0.9% NaCl 1 MG/10 ML Vial ONE (00:47)
[2022-06-10] MEDS ORDERED: ceFAZolin 2 GM Vial ONE (01:00)
[2022-06-10] MEDS ORDERED: Ketorolac 30 MG/ML SDV ONE (01:21)
[2022-06-10] MEDS ORDERED: Acetaminophen/oxyCODONE 325-5 MG Tab PO PRN ×2 (04:11)
[2022-06-10] MEDS ORDERED: Ondansetron 4 MG/2 ML SDV IV PRN (04:11)
[2022-06-10] MEDS ORDERED: diphenhydrAMINE 50 MG/ML SDV IVPUSH PRN (04:11)
[2022-06-10] MEDS ORDERED: Naloxone 0.4 MG/ML SDV IVPUSH PRN (04:11)
[2022-06-10] MEDS ORDERED: Dextrose 5%-Lactated Ringers 1,000 ML IV SCH (04:11)
[2022-06-10] MEDS ORDERED: ePHEDrine 50 MG/ML SDV IVPUSH PRN (04:11)
[2022-06-10] MEDS ORDERED: Lactated Ringers 1,000 ML IV ONE (06:00)
[2022-06-10] MEDS: Simethicone 80 MG Tab.Chew PO SCH ×3 (08:43→21:11)
[2022-06-10] MEDS: Prenatal Multivitamin with Calcium/Folic Acid/Iron Tab PO SCH (08:43)
[2022-06-10] MEDS ORDERED: Sodium Chloride 0.9% 10 ML Syringe FLUSH SCH (09:00)
[2022-06-10] MEDS: Ibuprofen 600 MG Tab PO PRN ×2 (16:08→21:11)
[2022-06-10] MEDS: Docusate Sodium 100 MG Cap PO PRN (21:12)
[2022-06-11] MEDS: Ibuprofen 600 MG Tab PO PRN ×3 (03:03→18:15)
[2022-06-11] MEDS: Simethicone 80 MG Tab.Chew PO SCH ×5 (08:13→21:12)
[2022-06-11] MEDS: Prenatal Multivitamin with Calcium/Folic Acid/Iron Tab PO SCH (09:55)
[2022-06-11] MEDS: Docusate Sodium 100 MG Cap PO PRN (21:12)
[2022-06-12] MEDS: Ibuprofen 600 MG Tab PO PRN ×2 (00:11→06:25)
== END 2022-06-12 11:12 | disposition home or self-care (01) | DRG 540 ==
LOC: JD.OBCHECK 23:59 → JD.OB 06-10 00:02 → JD.OBCHECK 06-10 00:16 → JD.OB 06-10 00:17
PROVIDERS: ADMIT Obstetrics & Gynecology; ATTEND Obstetrics & Gynecology
PROC: 10D00Z1 Extraction of Products of Conception, Low, Open Approach (ICD-10-PCS; principal; 2022-06-10)
DX: O99.354 Diseases of the nervous system complicating childbirth (principal); G93.5 Compression of brain; Z37.0 Single live birth; Z3A.38 38 weeks gestation of pregnancy
CPT/HCPCS: 36415; 59025; 85025; A9270-GY; J0690; J1885; J2274; J2405; J2590; J2765; J3490; J7120; J7121

== ENCOUNTER 2023-12-07 12:27 | Inpatient (IN) | payer BC ==
[2023-12-07] MEDS ORDERED: Sodium Chloride 0.9% 10 ML Syringe FLUSH PRN (12:52)
[2023-12-07] MEDS ORDERED: Lidocaine 1% 50 ML MDV INJECT PRN (12:52)
[2023-12-07] MEDS ORDERED: Nalbuphine 10 MG/ML Syringe IVPUSH PRN (12:52)
[2023-12-07] MEDS ORDERED: Lactated Ringers 1,000 ML IV SCH (13:00)
[2023-12-07] MEDS ORDERED: Ondansetron 4 MG/2 ML SDV IVPUSH PRN (13:13)
[2023-12-07 13:14] LABS: BASOPHILS ABSOLUTE AUTO 0.1 K/mm3 (0.0-0.2); BASOPHILS PERCENT AUTO 0.6 % (0.0-1.0); EOSINOPHILS PERCENT AUTO 0.3 % (0.0-6.0); HEMOGLOBIN 12.1 gm/dl (12.0-16.0); IMMATURE GRAN ABSOLUTE AUTO 0.08 K/mm3 (0.00-0.05); IMMATURE GRAN PERCENT AUTO 0.7 % (0.0-0.4); LYMPHOCYTES ABSOLUTE AUTO 1.5 K/mm3 (1.0-4.8); LYMPHOCYTES PERCENT AUTO 14.2 % (24.0-44.0); MEAN CORPUSCULAR HEMOGLOBIN 27.3 pg (28.0-32.0); MEAN CORPUSCULAR HGB CONC 32.7 g/dl (32.0-36.0); MEAN PLATELET VOLUME 10.1 fl (9.4-12.3); MONOCYTES ABSOLUTE AUTO 0.8 K/mm3 (0.0-0.8); MONOCYTES PERCENT AUTO 7.4 % (0.0-8.0); NEUTROPHILS ABSOLUTE AUTO 8.3 K/mm3 (1.8-7.7); NEUTROPHILS PERCENT AUTO 76.8 % (41.0-71.0); PLATELET COUNT,PLT 280 K/mm3 (150-400); RED BLOOD CELL COUNT 4.44 M/mm3 (4.10-5.30); WHITE BLOOD CELL COUNT,WBC 10.83 K/mm3 (3.9-11.3)
[2023-12-07 13:16] LABS: MEAN CORPUSCULAR VOLUME 83.3 fl (83.0-99.0)
[2023-12-07] MEDS: Oxytocin/0.9 % Sodium Chloride 30 UNIT/500 ML BAG IV SCH (15:27)
[2023-12-07] MEDS ORDERED: Acetaminophen 325 MG Tab PO PRN (16:23)
[2023-12-07] MEDS: Benzocaine/Menthol 20%-0.5% Spray 78 GM Cannister TOP PRN (18:02)
[2023-12-07] MEDS: Ibuprofen 600 MG Tab PO SCH (18:03)
[2023-12-07] MEDS: Witch Hazel Medicated Pads 40/Jar TOP PRN (18:03)
[2023-12-07] MEDS ORDERED: Sodium Chloride 0.9% 10 ML Syringe FLUSH SCH (21:00)
== END 2023-12-08 16:25 | disposition home or self-care (01) | DRG 560 ==
LOC: JD.OBCHECK 12:27 → JD.OB 12:28 → JD.OBCHECK 13:10 → JD.OB 13:11 → OBSVTOIN 15:25 → JD.OB 15:26
PROVIDERS: ADMIT Family Medicine; ATTEND Family Medicine
PROC: 10E0XZZ Delivery of Products of Conception, External Approach (ICD-10-PCS; principal; 2023-12-07)
DX: O34.211 Maternal care for low transverse scar from previous cesarean delivery (principal); O69.81X0 Labor and delivery complicated by cord around neck, without compression, not applicable or unspecified; Z37.0 Single live birth; Z3A.39 39 weeks gestation of pregnancy
CPT/HCPCS: 36415; 59025; 59409; 85025; 86592